=== PATIENT | male | born 1975 | race Caucasian/White ===

== ENCOUNTER 2021-10-09 21:44 | Emergency (ER) | payer SELFPAY ==
[2021-10-09 21:56] VITALS: BP 170/102
--- NOTE | 2021-10-09 21:58 | ED EENT ---
History of Present Illness General Chief Complaint: Eye Problems Stated Complaint: FOREIGN BODY IN R EYE Source: patient History of Present Illness Date Seen by Provider: Oct 09, 2021 Time Seen by Provider: 21:53 Initial Comments This 46 y/o male nonsmoker has pain and redness in right eye this PM after working under a generator while wind was blowing dust and has possible FB. NO sx elsewhere. No contact lenses but wears corrective lenses. Timing/Duration: abrupt, this afternoon Location: eye (R) Prearrival Treatment: no prearrival treatment Associated Symptoms: denies symptoms Allergies and Home Medications Allergies Coded Allergies: No Known Drug Allergies (Unverified , 10/09/21) Patient Home Medication List Home Medication List Reviewed: No Review of Systems Review of Systems Constitutional: no symptoms reported Eyes: See HPI, Foreign Body Sensation, Pain, Photophobia Ears: No Symptoms Reported Nose: no symptoms reported Mouth: no symptoms reported Throat: no symptoms reported Respiratory: no symptoms reported Gastrointestinal: No vomiting Skin: no symptoms reported Neurological: Denies Headache Past Ifmdmgx-Llhxxz-Ldltrx Hx Patient Social History Tobacco Use?: No Immunizations Up To Date Tetanus Booster (TDap): More than 5yrs (declines offer of booster) Past Medical History Asthma Neurological: Yes (Asberger's) Physical Exam Vital Signs Vital Signs - First Documented 10/09/21 21:56 Pulse 63 Resp 18 B/P (MAP) 170/102 (124) Pulse Ox 94 O2 Delivery Room Air Height, Weight, BMI Height: '" Weight: lbs. oz. kg; BMI Method: General Appearance: WD/WN Eyes: right eye conjunctival inflammation (modest diffuse injection OD, quiet OS), right eye other (No FB under lids or on cornea; no fluoro uptake; normal anterior chamber); bilateral eye PERRL, bilateral eye EOMI Neck: supple Respiratory: no respiratory distress, no accessory muscle use Neurologic/Psychiatric: alert, oriented x 3 Skin: normal color, warm/dry Progress/Results/Core Measures Results/Orders My Orders Orders - ANISA RIVAS MD Tetracaine 0.5% Ophth January Sdv (Tetracai (10/09/21 22:15) Fluorescein Strips ([id number]-Z-Mobvwu) (10/09/21 22:15) Balanced Salt Irrigation Soln (Bss Irrig (10/09/21 22:15) Ibuprofen Tablet (Motrin Tablet) (10/09/21 22:15) Vital Signs/I&O 10/09/21 21:56 Pulse 63 Resp 18 B/P (MAP) 170/102 (124) Pulse Ox 94 O2 Delivery Room Air Progress Progress Note : Progress Note I used a Wood's lamp w/ tetracaine analgesia (prompt relief) and fluoro staining. No uptake or FB seen. Lids inverted, swept, irrigated and inspect w/ magnification. No FB found in right eye. Nurse reports we don''t have a slit lamp here. I offered to send him down to [facility] for better exam under slit lamp and he declines stating he might go tomorrow if no better after we irrigated eye tonight Departure Impression Primary Impression: Conjunctivitis Disposition: 01 HOME, SELF-CARE Condition: Stable Departure-Patient Inst. Referrals: TERE WELSH MD (PCP/Family) Primary Care Physician Patient Instructions: Conjunctivitis (Noninfectious Pinkeye) Add. Discharge Instructions: As we discussed, this facility does not have a "slit lamp" for high powered magnification. I have offered to transfer you for a more thorough exam and you have declined. Seek out further care tomorrow if no better. All discharge instructions reviewed with patient and/or family. Voiced understanding. ANISA RIVAS MD Oct 09, 2021 21:58
[2021-10-09] MEDS ORDERED: FLUORESCEIN (FLUOR-I-STRIPS) 1 MG STRP OU ONE (22:15)
[2021-10-09] MEDS ORDERED: TETRACAINE 0.5% OPHTH SOLN 4 ML BTL (SINGLE DOSE ONLY) OU ONE (22:15)
[2021-10-09] MEDS ORDERED: BSS 15 ML IR ONE (22:15)
[2021-10-09] MEDS ORDERED: IBUPROFEN 600 MG (MOTRIN) TAB PO ONE (22:15)
== END 2021-10-09 22:33 | disposition home or self-care (01) ==
LOC: ER FS 21:46
DX: H10.9 Unspecified conjunctivitis (principal)
CPT/HCPCS: 99283

== ENCOUNTER 2022-09-02 14:33 | Emergency (ER) | payer OTHER ==
[~2022-09-02] VITALS: Ht 167 cm; Wt 79.0 kg
[2022-09-02 14:52] VITALS: BP 141/89
--- NOTE | 2022-09-02 14:54 | ED Upper Extremity ---
General Stated Complaint: WC RT ARM INJ History of Present Illness Date Seen by Provider: Sep 02, 2022 Time Seen by Provider: 14:43 Initial Comments 47-year-old male is here with complaints of a laceration to his right elbow after he had a fall at work on a tile floor. Patient also has right elbow pain. He is able to move his upper extremity without any issues. Denies sensory loss, head strike, LOC. Patient is right-hand dominant. Allergies and Home Medications Allergies Coded Allergies: No Known Drug Allergies (Unverified , 10/09/21) Patient Home Medication List Home Medication List Reviewed: Yes Review of Systems Constitutional: no symptoms reported EENTM: no symptoms reported Respiratory: no symptoms reported Cardiovascular: no symptoms reported Genitourinary: no symptoms reported Musculoskeletal: see HPI, joint pain Skin: see HPI, lesions Psychiatric/Neurological: No Symptoms Reported Past Kjfbpvk-Efzomi-Rdgxtu Hx Immunizations Up To Date Tetanus Booster (TDap): More than 5yrs Past Medical History Asthma Neurological: Yes (Norberterger's) Physical Exam Vital Signs Vital Signs - First Documented 09/02/22 14:52 Temp 36.5 Pulse 59 Resp 16 B/P (MAP) 141/89 (106) Pulse Ox 99 O2 Delivery Room Air Capillary Refill : Height, Weight, BMI Height: '" Weight: lbs. oz. kg; BMI Method: General Appearance: WD/WN, no apparent distress HEENT: PERRL/EOMI Neck: non-tender, full range of motion, supple, normal inspection Back: normal inspection, no vertebral tenderness Shoulder: normal inspection, non-tender, no evidence of injury, normal ROM Elbow/Forearm: normal ROM, Right, pain, soft tissue tenderness (Laceration on elbow which measures 3 cm in length and extends through the epidermis and dermal layers, minimal bleeding, no foreign body, gaping when elbow is flexed. N/V bundle intact.) Wrist: Yes normal inspection, Yes non-tender, Yes no evidence of injury, Yes normal ROM Hand: normal inspection, non-tender, no evidence of injury, normal ROM, Right Neurologic/Tendon: normal sensation, normal motor functions Neurologic/Psychiatric: no motor/sensory deficits, alert, normal mood/affect, oriented x 3 Skin: normal color Procedures/Interventions Wound Location: Upper Extremities Other Wound Location Right elbow Wound Length (cm): 3 Wound's Depth, Shape: superficial, linear Wound Explored: clean Irrigated w/ Saline (ccs): 20 Betadine Prep?: No Anesthesia: 1% Lidocaine Volume Anesthetic (ccs): 5 Suture: Ethlion Suture Size: 4-0 Number of Sutures: 4 Sterile Dressing Applied?: Yes Progress/Results/Core Measures Results/Orders My Orders Orders - KYRA SANCHEZ MD Elbow 2 View Right (09/02/22 14:48) Vital Signs/I&O 09/02/22 14:52 Temp 36.5 Pulse 59 Resp 16 B/P (MAP) 141/89 (106) Pulse Ox 99 O2 Delivery Room Air Progress Progress Note : Progress Note 1. RIGHT ELBOW LACERATION: - XR RIGHT ELBOW: normal - 4 interrupted sutures placed - Tetanus vaccine given in ER -Wound care instructions given. Advised ice application. Ibuprofen as needed for pain -Return in 7 days for suture removal -Follow-up with PCP within 1 week. Diagnostic Imaging Diagonstic Imaging: Xray Plain Films/CT/US/NM/MRI: elbow Comments [facility] [place] NAME: EMILE MCKEON [facility] REC#: [id number] PT STATUS: REG ER : 1975 PHYSICIAN: KYRA SANCHEZ MD ADMIT DATE: 09/02/22/ER FS Draft Date of Exam:09/02/22 ELBOW 2 VIEW RIGHT CLINICAL INDICATION: Patient with right elbow injury with laceration. EXAM: X-ray of the right elbow, two views. COMPARISON: None. FINDINGS: There is no acute fracture or dislocation. There is no significant bone or joint abnormality. There is no elbow effusion. There is no soft tissue air or radiodense foreign object. IMPRESSION: Unremarkable x-ray of the right elbow. Dictated on workstation # [id number] Dict: 09/02/22 1503 Trans: 09/02/22 1513 [id number] Interpreted by: JARED FERNANDES MD Electronically signed by: Departure Impression Primary Impression: Laceration of right elbow Disposition: 01 HOME, SELF-CARE Condition: Improved Departure-Patient Inst. Referrals: TERE WELSH MD (PCP) Primary Care Physician Patient Instructions: Laceration Repair With Stitches (DC), Wound Care ED Add. Discharge Instructions: -Wound care instructions given. Advised ice application. Ibuprofen as needed for pain -Return in 7 days for suture removal - Return to work tomorrow, and will need to keep wound covered with padded bandage when going to work. -Follow-up with PCP within 1 week. Work/School Note: Work Release Form Date Seen in the Emergency Department: Sep 02, 2022 Return to Work: Sep 03, 2022 Restrictions: No restrictions, exceept wound needs to be covered with a padded bandage KYRA SANCHEZ MD Sep 02, 2022 14:54
--- NOTE | 2022-09-02 15:13 | Diagnostic Imaging Report ---
CLINICAL INDICATION: Patient with right elbow injury with laceration. EXAM: X-ray of the right elbow, two views. COMPARISON: None. FINDINGS: There is no acute fracture or dislocation. There is no significant bone or joint abnormality. There is no elbow effusion. There is no soft tissue air or radiodense foreign object. IMPRESSION: Unremarkable x-ray of the right elbow. Dictated by: Dictated on workstation # [id number]
[2022-09-02] MEDS ORDERED: TETANUS,DIPTH,PERTUSS P/F (BOOSTRIX) 0.5 ML VIAL IM ONE (15:30)
== END 2022-09-02 15:45 | disposition home or self-care (01) ==
LOC: EDUNIT# 14:33 → ER FS 14:35
DX: S51.011A Laceration without foreign body of right elbow, initial encounter (principal); Z23 Encounter for immunization; W18.30XA Fall on same level, unspecified, initial encounter; Y92.59 Other trade areas as the place of occurrence of the external cause; Y99.0 Civilian activity done for income or pay
CPT/HCPCS: 12001; 73070; 90715